=== PATIENT | female | born 1995 | race Caucasian/White ===

== ENCOUNTER 2021-07-29 21:10 | Inpatient (IN) ==
[2021-07-29] MEDS ORDERED: SODIUM CHLORIDE 0.9% 1000ML 2,000 ML IV ONE (21:47)
[2021-07-29] MEDS ORDERED: guaiFENesin 600 MG TABCR PO STA (21:47)
[2021-07-29] MEDS ORDERED: ALBUT/IPRATROP 3MG/0.5MG NEB 3 ML VIAL NEB ONE (21:48)
[2021-07-29 22:05] LABS: Basophils # (auto) 0.01 K/uL (0-0.2); Basophils % (auto) 0.1 %; Eosinophils # (auto) 0.13 K/uL (0-0.5); Eosinophils % (auto) 0.8 %; Hematocrit (blood only) 45.4 % (37-47); Hemoglobin 15.9 g/dL (12.0-16.0); Immature Granulocytes # (auto) 0.12 K/uL (0.00-0.02); Immature Granulocytes % (auto) 0.7 %; Lymphocytes # (auto) 1.17 K/uL (1.2-3.4); Lymphocytes % (auto) 7.2 %; Mean Corpuscular Hemoglobin 31.1 pg (25-34); Mean Corpuscular Volume 88.8 fL (80-100); Mean Platelet Volume 9.7 fL (7.4-10.4); Neutrophils # (auto) 13.45 K/uL (1.4-6.5); Neutrophils % (auto) 83.2 %; Platelet Count 330 K/uL (130-400); RDW Coefficient of Variation 12.6 % (11.5-14.5); RDW Standard Deviation 40.9 fL (36.4-46.3); Red Blood Count 5.11 M/uL (4.2-5.4); White Blood Count 16.18 K/uL (4.8-10.8)
[2021-07-29] MEDS: MAGNESIUM SULFATE / D5W 1 GM/100 ML BAG IV SCH ×2 (22:21→22:32)
[2021-07-29 22:24] LABS: Troponin I < 0.03 ng/ml (0-0.04)
[2021-07-29 22:28] LABS: Pregnancy Test, Serum Negative (Negative)
[2021-07-29 22:30] LABS: Alanine Aminotransferase 18 U/L (7-52); Albumin Globulin Ratio 1.7 (0.9-2); Albumin Level 4.5 gm/dl (3.4-5.0); Alkaline Phosphatase 57 U/L (34-104); Anion Gap 9 (3-11); Aspartate Aminotransferase 14 U/L (13-39); BUN Creatinine Ratio 17.5 (10-20); Bilirubin,Total 0.4 mg/dl (0.2-1.0); Blood Urea Nitrogen 11 mg/dl (6-23); Carbon Dioxide 28 mmol/L (21-32); Chloride 104 mmol/L (98-107); Creatinine Clr Calc Pharmacy 135.1 ml/min; Est GFR (African American) 146.5 ml/min; Est GFR (Non-African American) 126.4 ml/min; Globulin 2.7 gm/dl (2.5-4.0); Glucose 89 mg/dl (70-99(Fasting)); Lipase 13 U/L (11-82); Sodium 141 mmol/L (136-145); Total Protein 7.2 gm/dl (6.0-8.3)
[2021-07-30] MEDS ORDERED: ALBUT/IPRATROP 3MG/0.5MG NEB 3 ML VIAL NEB ONE (00:07)
--- NOTE | 2021-07-30 00:59 | History & Physical Report ---
Date of Service July 30, 2021 Assessment & Plan (1) Asthma exacerbation: Plan: Protracted symptoms Rule out PE as precipitant Medical telemetry CT chest PE study Steroids, nebs RTC Pulmonary consult if without improvement DVT prophylaxis per Lovenox subcu Full code Text document was generated using [employer] voice recognition software. It may contain grammatical or spelling errors. Kindly contact undersigned for clarification of any documentation item in question. History of Present Illness Chief Complaint: shortness of breath Primary Care Provider: NO PCP History obtained from patient and records. Medical history significant for bronchial asthma. Patient has had bronchial asthma since childhood. Usual precipitants include dust and change in weather. Infrequent rescue inhaler use. Patient recalls intubation history for bad asthma attack years ago when she was living in [place]. Last week, patient confined for 2 days at [facility] for asthma exacerbation. Patient discharged on 5-day prednisone course and rescue inhaler. No recent ER visits for asthma attacks prior to recent confinement. Patient noted persistent dry cough symptoms at home. Shortness of breath worse on exertion. Chest tightness with achy headache symptoms. Solu-Cortef and neb treatment administered by EMS. Medical History as above Surgical History : None Family History : Stroke Personal/Social history : Non-smoker, occasional EtOH intake, currently unemployed Allergies Allergy/AdvReac Type Severity Reaction Status Date / Time No Known Allergies Allergy Unverified 07/29/21 22:08 Home Medications Medication Instructions Recorded Confirmed Type albuterol sulfate 90 mcg/actuation 2 puff INHALATION Q6H PRN 07/29/21 07/29/21 History aerosol inhaler prednisone 1 dose PO UD 07/29/21 07/29/21 History Past Med/Surg History Medical History Asthma Family History Other Family history non-contributory Social History Smoking Status: Never smoker Second Hand Exposure: No; Do You Dip or Chew Tobacco: No; Tobacco Cessation Education Requested by Patient: No Hx Alcohol Use: Yes (Patient drinks socially) Hx Substance Use: No Communication Ability: Effective [employer] Packer Required: No Beliefs That Will Affect Care: None Current Living Situation: Alone Current Living Situation Comment: Lives home by herself Feels Safe at Home: No Is there a partner from a previous relationship who is making you feel unsafe now?: No Any Concerns about Your Family Situation: No Would You Like to Speak to Someone About Your Situation: No Safety Concerns: Feels Safe At This Time Assistive Devices: None Review of Systems Review of Systems: As per HPI, all 10 systems reviewed, all other ROS negative Physical Exam Physical Exam: GENERAL: Comfortable, slightly anxious, no respiratory distress SKIN: Normal color, warm HEENT: [place] palpebral conjunctivae, no ptosis, dry buccal mucosa NECK : Supple, no tenderness CHEST : Decreased breath sounds, occasional expiratory wheezes, no tenderness HEART : Tachycardic, no obvious murmurs ABDOMEN: no distention, nontender EXTREMITIES : No LE swelling/tenderness, no other conspicuous deformities noted NEUROLOGIC : Coherent, no facial asymmetry, no other gross focality Results & Data Results & Data ([facility]) Vital Signs (Past 12 Hours) Vital Signs Temp Pulse Resp BP Pulse Ox 07/29/21 23:20 129 H 19 91 07/29/21 23:10 123 H 17 97 07/29/21 23:00 132 H 21 97 07/29/21 22:57 24 91 07/29/21 22:50 123 H 27 H 97 07/29/21 22:40 135 H 19 99 07/29/21 22:30 125 H 24 98 07/29/21 22:20 143 H 16 99 07/29/21 22:10 121 H 16 99 07/29/21 22:00 123 H 15 91 07/29/21 21:50 132 H 18 93 07/29/21 21:47 91 07/29/21 21:40 125 H 15 93 07/29/21 21:30 137 H 18 93 07/29/21 21:20 153 H 25 H 92 07/29/21 20:57 36.4 C 150 H 35 H 138/102 H 91 Laboratory Results Laboratory Results WBC 16.18 K/uL (4.8-10.8) H 07/29/21 21:35 RBC 5.11 M/uL (4.2-5.4) 07/29/21 21:35 Hgb 15.9 g/dL (12.0-16.0) 07/29/21 21:35 Hct 45.4 % (37-47) 07/29/21 21: MCV 88.8 fL (80-100) 07/29/21 21: MCH 31.1 pg (25-34) 07/29/21: MCHC 35.0 g/dL (32-36) 07/29/21: RDW Std Deviation 40.9 fL (36.4-46.3) 07/29/21: RDW Coeff of Gregory 12.6 % (11.5-14.5) 07/29/21: Plt Count 330 K/uL (130-400) 07/29/21: MPV 9.7 fL (7.4-10.4) 07/29/21: Immature Gran % (Auto) 0.7 % 07/29/21: Neut % (Auto) 83.2 % 07/29/21: Lymph % (Auto) 7.2 % 07/29/21: [place] % (Auto) 8.0 % 07/29/21: Eos % (Auto) 0.8 % 07/29/21 21: Baso % (Auto) 0.1 % 07/29/21: Neut # (Auto) 13.45 K/uL (1.4-6.5) H 07/29/21: Lymph # (Auto) 1.17 K/uL (1.2-3.4) L 07/29/21: [place] # (Auto) 1.30 K/uL (0.11-0.59) H 07/29/21 21: Eos # (Auto) 0.13 K/uL (0-0.5) 07/29/21 21: Baso # (Auto) 0.01 K/uL (0-0.2) 07/29/21: Immature Gran # (Auto) 0.12 K/uL (0.00-0.02) H 07/29/21 21: Sodium 141 mmol/L (136-145) 07/29/21 21: Potassium 4.0 mmol/L (3.5-5.1) 07/29/21 21: Chloride 104 mmol/L (98-107) 07/29/21 21: Carbon Dioxide 28 mmol/L (21-32) 07/29/21 21:35 Anion Gap 9 (3-11) 07/29/21 21:35 BUN 11 mg/dl (6-23) 07/29/21 21:35 Creatinine 0.63 mg/dl (0.6-1.2) 07/29/21 21:35 Est Cr Clr Drug Dosing 135.1 ml/min 07/29/21 21:35 Est GFR ( Amer) 146.5 ml/min 07/29/21 21:35 Est GFR (Non-Af Amer) 126.4 ml/min 07/29/21 21:35 BUN/Creatinine Ratio 17.5 (10-20) 07/29/21 21:35 Glucose 89 mg/dl (70-99(Fasting)) 07/29/21 21:35 Calcium 9.0 mg/dl (8.5-10.1) 07/29/21 21:35 Total Bilirubin 0.4 mg/dl (0.2-1.0) 07/29/21 21:35 AST 14 U/L (13-39) 07/29/21 21:35 ALT 18 U/L (7-52) 07/29/21 21:35 Alkaline Phosphatase 57 U/L (34-104) 07/29/21 21:35 Troponin I < 0.03 ng/ml (0-0.04) 07/29/21 21:35 Total Protein 7.2 gm/dl (6.0-8.3) 07/29/21 21:35 Albumin 4.5 gm/dl (3.4-5.0) 07/29/21 21:35 Globulin 2.7 gm/dl (2.5-4.0) 07/29/21 21:35 Albumin/Globulin Ratio 1.7 (0.9-2) 07/29/21 21:35 Lipase 13 U/L (11-82) 07/29/21 21:35 HCG, Qual Negative (Negative) 07/29/21 21:35 SARS-CoV-2, RNA, NAAT NEGATIVE (NEGATIVE) 07/29/21 23:27 Diagnostic Findings Chest x-ray per my interpretation hyperinflation EKG as per my interpretation : Rate 135, sinus tachycardia, normal axis, T wave abnormalities inferior leads
[2021-07-30] MEDS ORDERED: ACETAMINOPHEN 325 MG TAB PO STA (01:01)
--- NOTE | 2021-07-30 01:03 | Emergency Department Note ---
Impression & Plan Asthma with status asthmaticus in adult, Hypoxia, Sinus tachycardia ED Provider Note NAME: MARGE WATTS AGE: 25 SEX: F ARRIVES VIA: Ambulance INFORMANT: Patient ED PROVIDER(S): Allan Beck MD CHIEF COMPLAINT: SOB, Asthma PLAN: Disposition: Admit MEDICAL DECISION MAKING: The patient is a pleasant 24-year-old woman with a past medical history of asthma where she has a remote history of requiring intubation and ICU admission who presents to the emergency department with worsening flare of cough and wheezing over the past 48 hours in the setting of being admitted to [facility] this past weekend for similar flare. Patient reports she was feeling improved upon her discharge but then her symptoms began to worsen. She has any fevers, nausea, vomiting, diarrhea or urinary symptoms. She is vaccinated for COVID-19 denies any known COVID-19 exposures. Given Solu-Cortef by EMS and DuoNeb and prior to that the patient was administering her nebulizer treatments every 4 hours. On arrival, the patient is uncomfortable but in no acute distress, afebrile with heart rate in the 130s signs otherwise stable. She appears clinically dry. She has diffuse wheezes and rhonchi with prolonged expiratory phase with mild increased work of breathing. EKG without overt acute ischemia. CXR with flattening of diaphragm. No overt infiltrates per my preliminary review. WBC 16K, nonspecific and in the setting of being on steroids. H/H, platelets wnl. Chemistry without acidosis. Electrolytes unremarkable. LFTs without significant abnormality. Troponin negative/undetectable. Covid-19 RNA, NAAT negative. The patient was treated with continuous hour-long DuoNeb, Magnesium guaifenesin and IV fluid hydration with some improvement in her symptoms though still diffusely wheezing. RN did report that the patient became significantly short of breath with ambulation to the bathroom and had desaturation to 85% with exertion but would recover when at rest. Given the persistence of her asthma flare in the setting of her concerning history she agrees with plan for admission. She was ordered for second continuous DuoNeb. Case was discussed with Dr. Gill, [facility] hospitalist who will evaluate the patient for admission. Triage Nursing notes reviewed and agree them. Prior medical records reviewed Vital Signs: reviewed and remarkable for tachycardia, low O2 saturation. Differential diagnosis: Reactive airway disease, pneumonia, pneumothorax, COPD, CHF, infections, cardiac ischemia, pulmonary embolism, musculoskeletal, gastrointestinal, as well as other pathologies. ER treatment provided: See below. Diagnostics interpreted by me: ECG: Sinus tachycardia, 137 bpm, no ectopy, TWA, no overt ST elevation or depression. Cardiac Monitoring: An order for continuous cardiac monitoring was placed and demonstrated Sinus tachycardia, 137 bpm, no ectopy. Laboratory studies: See below Imaging studies: CXR with flattening of diaphragm. No overt infiltrates per my preliminary revi ew. Consultation(s): Case was discussed with Dr. Gill, [facility] hospitalist who will evaluate the patient for admission. HPI: The patient is a pleasant 24-year-old woman with a past medical history of asthma where she has a remote history of requiring intubation and ICU admission who presents to the emergency department with worsening flare of cough and wheezing over the past 48 hours in the setting of being admitted to [facility] this past weekend for similar flare. Patient reports she was feeling improved upon her discharge but then her symptoms began to worsen. She has any fevers, nausea, vomiting, diarrhea or urinary symptoms. She is vaccinated for COVID-19 denies any known COVID-19 exposures. Given Solu-Cortef by EMS and DuoNeb and prior to that the patient was administering her nebulizer treatments every 4 hours. ROS: See above HPI for pertinent positives & negatives. A total of 10 systems reviewed and were otherwise negative. VITALS:See Below PHYSICAL EXAMINATION: GENERAL: Awake, alert, uncomfortable-appearing, in no distress HENT: Normocephalic, atraumatic. Oropharynx with dry mucous membranes and otherwise unremarkable. EYES: Normal conjunctiva. Sclera non-icteric. NECK: Supple. No nuchal rigidity. FROM. No JVD. RESPIRATORY: Diffuse wheezes and rhonchi with prolonged expiratory phase with mild increased work of breathing but in no acute distress. CARDIAC: Tachycardic rate, normal rhythm. Extremities warm and well perfused. Pulses equal. ABDOMEN: Soft, non-distended. No tenderness to palpation. No rebound or guarding. No masses. RECTAL: Deferred. MUSCULOSKELETAL: Chest examination reveals no tenderness. The back is s ymmetrical on inspection without obvious abnormality. There is no CVA tenderness to palpation. No joint edema. LOWER EXTREMITIES: Calves are equal size bilaterally and non-tender. No edema. No discoloration. NEURO: Normal sensorium. No sensory or motor deficits noted. SKIN: No rash or jaundice noted. ED COURSE: Critical Care: I have personally spent greater than 35 minutes of critical care time in the direct management of this patient. This includes bedside care, interpretation of diagnostic studies, and testing, discussion with consultants, patient, and family members, and other required patient management activities. This 35 minutes is in excess of all separately billable procedures. Allan Beck MD Past Med/Surg History Medical History Asthma Family History Other Family history non-contributory Social History Smoking Status: Never smoker Feels Safe at Home: Yes Allergies Allergies Allergy/AdvReac Type Severity Reaction Status Date / Time No Known Allergies Allergy Unverified 07/29/21 22:08 Home Meds Home Medications Medication Instructions Recorded Confirmed albuterol sulfate 90 mcg/actuation 2 puff INHALATION Q6H PRN 07/29/21 07/29/21 aerosol inhaler prednisone 1 dose PO UD 07/29/21 07/29/21 Results & Data (ED) Vital Signs Vital Signs - 24 hr 07/29/21 20:57 07/29/21 21:20 07/29/21 21:30 Temperature 36.4 C Temperature Source Oral Pulse Rate 150 H 153 H 137 H Pulse Rate [Radial] Pulse Rate from SpO2 Sensor 153 H 134 H Pulse Rhythm Regular Respiratory Rate 35 H 25 H 18 Respiratory Effort / Characteristics Short of Breath Tripoding Respiratory Depth Blood Pressure 138/102 H Blood Pressure [Right Arm] Blood Pressure Mean 114 Blood Pressure Mean [Right Arm] Blood Pressure Position Sitting Pulse Oximetry 91 92 93 Oxygen Delivery Method Room Air Oxygen Flow Rate Sepsis Recent Fever Within 48 Hours No Sepsis New/Unexplained Change in Mental Status No Sepsis Action Taken by Nursing No Action Required 07/29/21 21:40 07/29/21 21:47 07/29/21 21:50 Temperature Temperature Source Pulse Rate 125 H 132 H Pulse Rate [Radial] Pulse Rate from SpO2 Sensor 127 H 130 H Pulse Rhythm Respiratory Rate 15 18 Respiratory Effort / Characteristics Respiratory Depth Blood Pressure Blood Pressure [Right Arm] Blood Pressure Mean Blood Pressure Mean [Right Arm] Blood Pressure Position Pulse Oximetry 93 91 93 Oxygen Delivery Method Room Air Oxygen Flow Rate Sepsis Recent Fever Within 48 Hours Sepsis New/Unexplained Change in Mental Status Sepsis Action Taken by Nursing 07/29/21 22:00 07/29/21 22:10 07/29/21 22:20 Temperature Temperature Source Pulse Rate 123 H 121 H 143 H Pulse Rate [Radial] Pulse Rate from SpO2 Sensor 124 H 123 H 146 H Pulse Rhythm Respiratory Rate 15 16 16 Respiratory Effort / Characteristics Respiratory Depth Blood Pressure Blood Pressure [Right Arm] Blood Pressure Mean Blood Pressure Mean [Right Arm] Blood Pressure Position Pulse Oximetry 91 99 99 Oxygen Delivery Method Oxygen Flow Rate Sepsis Recent Fever Within 48 Hours Sepsis New/Unexplained Change in Mental Status Sepsis Action Taken by Nursing 07/29/21 22:30 07/29/21 22:40 07/29/21 22:50 Temperature Temperature Source Pulse Rate 125 H 135 H 123 H Pulse Rate [Radial] Pulse Rate from SpO2 Sensor 125 H 124 H 122 H Pulse Rhythm Respiratory Rate 24 19 27 H Respiratory Effort / Characteristics Respiratory Depth Blood Pressure Blood Pressure [Right Arm] Blood Pressure Mean Blood Pressure Mean [Right Arm] Blood Pressure Position Pulse Oximetry 98 99 97 Oxygen Delivery Method Oxygen Flow Rate Sepsis Recent Fever Within 48 Hours Sepsis New/Unexplained Change in Mental Status Sepsis Action Taken by Nursing 07/29/21 22:57 07/29/21 23:00 07/29/21 23:10 Temperature Temperature Source Pulse Rate 132 H 123 H Pulse Rate [Radial] Pulse Rate from SpO2 Sensor 131 H 123 H Pulse Rhythm Respiratory Rate 24 21 17 Respiratory Effort / Characteristics Respiratory Depth Blood Pressure Blood Pressure [Right Arm] Blood Pressure Mean Blood Pressure Mean [Right Arm] Blood Pressure Position Pulse Oximetry 91 97 97 Oxygen Delivery Method Room Air Oxygen Flow Rate Sepsis Recent Fever Within 48 Hours Sepsis New/Unexplained Change in Mental Status Sepsis Action Taken by Nursing 07/29/21 23:20 07/29/21 23:30 07/29/21 23:40 Temperature Temperature Source Pulse Rate 129 H 120 H 115 H Pulse Rate [Radial] Pulse Rate from SpO2 Sensor 130 H 121 H 114 H Pulse Rhythm Respiratory Rate 19 24 15 Respiratory Effort / Characteristics Respiratory Depth Blood Pressure Blood Pressure [Right Arm] Blood Pressure Mean Blood Pressure Mean [Right Arm] Blood Pressure Position Pulse Oximetry 91 91 94 Oxygen Delivery Method Oxygen Flow Rate Sepsis Recent Fever Within 48 Hours Sepsis New/Unexplained Change in Mental Status Sepsis Action Taken by Nursing 07/29/21 23:50 07/30/21 00:00 07/30/21 00:10 Temperature Temperature Source Pulse Rate 119 H 119 H 118 H Pulse Rate [Radial] Pulse Rate from SpO2 Sensor 119 H 120 H 119 H Pulse Rhythm Respiratory Rate 19 18 20 Respiratory Effort / Characteristics Respiratory Depth Normal Blood Pressure Blood Pressure [Right Arm] Blood Pressure Mean Blood Pressure Mean [Right Arm] Blood Pressure Position Pulse Oximetry 92 92 91 Oxygen Delivery Method Room Air Oxygen Flow Rate Sepsis Recent Fever Within 48 Hours Sepsis New/Unexplained Change in Mental Status Sepsis Action Taken by Nursing 07/30/21 00:20 07/30/21 00:30 07/30/21 00:40 Temperature Temperature Source Pulse Rate 112 H 121 H 111 H Pulse Rate [Radial] Pulse Rate from SpO2 Sensor 111 H 112 H Pulse Rhythm Respiratory Rate 19 17 Respiratory Effort / Characteristics Respiratory Depth Blood Pressure Blood Pressure [Right Arm] Blood Pressure Mean Blood Pressure Mean [Right Arm] Blood Pressure Position Pulse Oximetry 92 96 Oxygen Delivery Method Oxygen Flow Rate Sepsis Recent Fever Within 48 Hours Sepsis New/Unexplained Change in Mental Status Sepsis Action Taken by Nursing 07/30/21 00:50 07/30/21 01:00 07/30/21 01:10 Temperature Temperature Source Pulse Rate 116 H 117 H 116 H Pulse Rate [Radial] Pulse Rate from SpO2 Sensor 114 H 117 H 117 H Pulse Rhythm Respiratory Rate 15 19 22 Respiratory Effort / Characteristics Respiratory Depth Blood Pressure Blood Pressure [Right Arm] Blood Pressure Mean Blood Pressure Mean [Right Arm] Blood Pressure Position Pulse Oximetry 96 94 95 Oxygen Delivery Method Oxygen Flow Rate Sepsis Recent Fever Within 48 Hours Sepsis New/Unexplained Change in Mental Status Sepsis Action Taken by Nursing 07/30/21 01:20 07/30/21 01:30 07/30/21 01:40 Temperature Temperature Source Pulse Rate 122 H 113 H 124 H Pulse Rate [Radial] Pulse Rate from SpO2 Sensor 112 H 126 H Pulse Rhythm Respiratory Rate 16 16 22 Respiratory Effort / Characteristics Respiratory Depth Blood Pressure Blood Pressure [Right Arm] Blood Pressure Mean Blood Pressure Mean [Right Arm] Blood Pressure Position Pulse Oximetry 98 99 Oxygen Delivery Method Oxygen Flow Rate Sepsis Recent Fever Within 48 Hours Sepsis New/Unexplained Change in Mental Status Sepsis Action Taken by Nursing 07/30/21 01:50 07/30/21 02:00 07/30/21 02:10 Temperature Temperature Source Pulse Rate 133 H 141 H 131 H Pulse Rate [Radial] Pulse Rate from SpO2 Sensor 133 H 141 H 131 H Pulse Rhythm Respiratory Rate 23 18 21 Respiratory Effort / Characteristics Respiratory Depth Blood Pressure Blood Pressure [Right Arm] Blood Pressure Mean Blood Pressure Mean [Right Arm] Blood Pressure Position Pulse Oximetry 99 98 98 Oxygen Delivery Method Oxygen Flow Rate Sepsis Recent Fever Within 48 Hours Sepsis New/Unexplained Change in Mental Status Sepsis Action Taken by Nursing 07/30/21 02:20 07/30/21 02:31 07/30/21 03:14 Temperature Temperature Source Pulse Rate 152 H Pulse Rate [Radial] 125 H Pulse Rate from SpO2 Sensor 151 H Pulse Rhythm Respiratory Rate 19 18 Respiratory Effort / Characteristics Non-Labored Spontaneous Respiratory Depth Blood Pressure Blood Pressure [Right Arm] 111/82 Blood Pressure Mean Blood Pressure Mean [Right Arm] 91 Blood Pressure Position Pulse Oximetry 99 95 Oxygen Delivery Method Nasal Cannula Oxygen Flow Rate 2 Sepsis Recent Fever Within 48 Hours Sepsis New/Unexplained Change in Mental Status Sepsis Action Taken by Nursing 07/30/21 03:17 Temperature Temperature Source Pulse Rate 130 H Pulse Rate [Radial] Pulse Rate from SpO2 Sensor Pulse Rhythm Respiratory Rate Respiratory Effort / Characteristics Respiratory Depth Blood Pressure 117/63 Blood Pressure [Right Arm] Blood Pressure Mean Blood Pressure Mean [Right Arm] Blood Pressure Position Pulse Oximetry Oxygen Delivery Method Oxygen Flow Rate Sepsis Recent Fever Within 48 Hours Sepsis New/Unexplained Change in Mental Status Sepsis Action Taken by Nursing Laboratory Data Attestation: I reviewed the patient's lab results. Result diagrams: 07/29/21 21:35 07/29/21 21:35 Lab Results 07/29/21 07/29/21 07/29/21 Range/Units 21:35 21:35 21:35 WBC 16.18 H (4.8-10.8) K/uL RBC 5.11 (4.2-5.4) M/uL Hgb 15.9 (12.0-16.0) g/dL Hct 45.4 (37-47) % MCV 88.8 (80-100) fL MCH 31.1 (25-34) pg MCHC 35.0 (32-36) g/dL RDW Std Deviation 40.9 (36.4-46.3) fL RDW Coeff of Gregory 12.6 (11.5-14.5) % Plt Count 330 (130-400) K/uL MPV 9.7 (7.4-10.4) fL Immature Gran % (Auto) 0.7 % Neut % (Auto) 83.2 % Lymph % (Auto) 7.2 % [place] % (Auto) 8.0 % Eos % (Auto) 0.8 % Baso % (Auto) 0.1 % Neut # (Auto) 13.45 H (1.4-6.5) K/uL Lymph # (Auto) 1.17 L (1.2-3.4) K/uL [place] # (Auto) 1.30 H (0.11-0.59) K/uL Eos # (Auto) 0.13 (0-0.5) K/uL Baso # (Auto) 0.01 (0-0.2) K/uL Immature Gran # (Auto) 0.12 H (0.00-0.02) K/uL APTT (21.0-31.0) Seconds PTT Ratio Sodium 141 (136-145) mmol/L Potassium 4.0 (3.5-5.1) mmol/L Chloride 104 (98-107) mmol/L Carbon Dioxide 28 (21-32) mmol/L Anion Gap 9 (3-11) BUN 11 (6-23) mg/dl Creatinine 0.63 (0.6-1.2) mg/dl Est Cr Clr Drug Dosing 135.1 ml/min Est GFR ( Amer) 146.5 ml/min Est GFR (Non-Af Amer) 126.4 ml/min BUN/Creatinine Ratio 17.5 (10-20) Glucose 89 (70-99(Fasting)) mg/dl Lactate (0.4-2.0) mmol/L Calcium 9.0 (8.5-10.1) mg/dl Magnesium (1.7-2.4) mg/dl Total Bilirubin 0.4 (0.2-1.0) mg/dl AST 14 (13-39) U/L ALT 18 (7-52) U/L Alkaline Phosphatase 57 (34-104) U/L Troponin I < 0.03 (0-0.04) ng/ml Total Protein 7.2 (6.0-8.3) gm/dl Albumin 4.5 (3.4-5.0) gm/dl Globulin 2.7 (2.5-4.0) gm/dl Albumin/Globulin Ratio 1.7 (0.9-2) Lipase 13 (11-82) U/L Procalcitonin (0-0.5) ng/ml HCG, Qual Negative (Negative) SARS-CoV-2, RNA, NAAT (NEGATIVE) 07/29/21 07/30/21 07/30/21 Range/Units 23:27 02:04 02:04 WBC (4.8-10.8) K/uL RBC (4.2-5.4) M/uL Hgb (12.0-16.0) g/dL Hct (37-47) % MCV (80-100) fL MCH (25-34) pg MCHC (32-36) g/dL RDW Std Deviation (36.4-46.3) fL RDW Coeff of Gregory (11.5-14.5) % Plt Count (130-400) K/uL MPV (7.4-10.4) fL Immature Gran % (Auto) % Neut % (Auto) % Lymph % (Auto) % [place] % (Auto) % Eos % (Auto) % Baso % (Auto) % Neut # (Auto) (1.4-6.5) K/uL Lymph # (Auto) (1.2-3.4) K/uL [place] # (Auto) (0.11-0.59) K/uL Eos # (Auto) (0-0.5) K/uL Baso # (Auto) (0-0.2) K/uL Immature Gran # (Auto) (0.00-0.02) K/uL APTT 22.8 (21.0-31.0) Seconds PTT Ratio 0.8 Sodium (136-145) mmol/L Potassium (3.5-5.1) mmol/L Chloride (98-107) mmol/L Carbon Dioxide (21-32) mmol/L Anion Gap (3-11) BUN (6-23) mg/dl Creatinine (0.6-1.2) mg/dl Est Cr Clr Drug Dosing ml/min Est GFR ( Amer) ml/min Est GFR (Non-Af Amer) ml/min BUN/Creatinine Ratio (10-20) Glucose (70-99(Fasting)) mg/dl Lactate (0.4-2.0) mmol/L Calcium (8.5-10.1) mg/dl Magnesium 2.5 H (1.7-2.4) mg/dl Total Bilirubin (0.2-1.0) mg/dl AST (13-39) U/L ALT (7-52) U/L Alkaline Phosphatase (34-104) U/L Troponin I (0-0.04) ng/ml Total Protein (6.0-8.3) gm/dl Albumin (3.4-5.0) gm/dl Globulin (2.5-4.0) gm/dl Albumin/Globulin Ratio (0.9-2) Lipase (11-82) U/L Procalcitonin (0-0.5) ng/ml HCG, Qual (Negative) SARS-CoV-2, RNA, NAAT NEGATIVE (NEGATIVE) 07/30/21 07/30/21 Range/Units 02:04 02:04 WBC (4.8-10.8) K/uL RBC (4.2-5.4) M/uL Hgb (12.0-16.0) g/dL Hct (37-47) % MCV (80-100) fL MCH (25-34) pg MCHC (32-36) g/dL RDW Std Deviation (36.4-46.3) fL RDW Coeff of Gregory (11.5-14.5) % Plt Count (130-400) K/uL MPV (7.4-10.4) fL Immature Gran % (Auto) % Neut % (Auto) % Lymph % (Auto) % [place] % (Auto) % Eos % (Auto) % Baso % (Auto) % Neut # (Auto) (1.4-6.5) K/uL Lymph # (Auto) (1.2-3.4) K/uL [place] # (Auto) (0.11-0.59) K/uL Eos # (Auto) (0-0.5) K/uL Baso # (Auto) (0-0.2) K/uL Immature Gran # (Auto) (0.00-0.02) K/uL APTT (21.0-31.0) Seconds PTT Ratio Sodium (136-145) mmol/L Potassium (3.5-5.1) mmol/L Chloride (98-107) mmol/L Carbon Dioxide (21-32) mmol/L Anion Gap (3-11) BUN (6-23) mg/dl Creatinine (0.6-1.2) mg/dl Est Cr Clr Drug Dosing ml/min Est GFR ( Amer) ml/min Est GFR (Non-Af Amer) ml/min BUN/Creatinine Ratio (10-20) Glucose (70-99(Fasting)) mg/dl Lactate 2.4 H* (0.4-2.0) mmol/L Calcium (8.5-10.1) mg/dl Magnesium (1.7-2.4) mg/dl Total Bilirubin (0.2-1.0) mg/dl AST (13-39) U/L ALT (7-52) U/L Alkaline Phosphatase (34-104) U/L Troponin I (0-0.04) ng/ml Total Protein (6.0-8.3) gm/dl Albumin (3.4-5.0) gm/dl Globulin (2.5-4.0) gm/dl Albumin/Globulin Ratio (0.9-2) Lipase (11-82) U/L Procalcitonin < 0.05 (0-0.5) ng/ml HCG, Qual (Negative) SARS-CoV-2, RNA, NAAT (NEGATIVE) Administered Medications Discontinued Medications Acetaminophen (Acetaminophen 325 Mg Tab) 650 mg PO NOW STA Stop: 07/30/21 01:02 Last Admin: 07/30/21 01:29 Dose: 650 mg Documented by: [id number] Albuterol (Albut/Ipratrop 3mg/0.5mg Neb 3 Ml Vial) 12 ml NEB ONE ONE; Protocol Stop: 07/29/21 21:49 Last Admin: 07/29/21 22:06 Dose: 12 ml Documented by: [id number] Albuterol (Albut/Ipratrop 3mg/0.5mg Neb 3 Ml Vial) 12 ml NEB ONE ONE; Protocol Stop: 07/30/21 00:08 Last Admin: 07/30/21 01:13 Dose: 12 ml Documented by: [id number] Guaifenesin (Guaifenesin 600 Mg Tabcr) 600 mg PO NOW STA Stop: 07/29/21 21:48 Last Admin: 07/29/21 22:21 Dose: 600 mg Documented by: [id number] Sodium Chloride (Nss 1000ml) 2,000 mls @ 999 mls/hr IV .Q2H1M ONE Stop: 07/29/21 23:47 Last Infusion: 07/30/21 00:23 Dose: 0 mls/hr Documented by: [id number] Admin: 07/29/21 22:05 Dose: 999 mls/hr Documented by: [id number] Magnesium Sulfate/Dextrose (Magnesium Sulfate / D5w) 1 gm in 100 mls @ 600 mls/hr IV Q10M MYRNA Stop: 07/29/21 22:07 Last Infusion: 07/29/21 22:43 Dose: 0 mls/hr Documented by: [id number] Admin: 07/29/21 22:32 Dose: 600 mls/hr Documented by: [id number] Infusion: 07/29/21 22:32 Dose: 0 mls/hr Documented by: [id number] Admin: 07/29/21 22:21 Dose: 600 mls/hr Documented by: [id number] Lactated Ringer's (Lr) 1,000 mls @ 500 mls/hr IV .Q2H STA Stop: 07/30/21 03:12 Last Admin: 07/30/21 01:29 Dose: 500 mls/hr Documented by: [id number] Lorazepam (Lorazepam 2 Mg/1 Ml Vial) 0.5 mg IV NOW STA Stop: 07/30/21 02:36 Last Admin: 07/30/21 03:18 Dose: 0.5 mg Documented by: [id number] Metoprolol Tartrate (Metoprolol Tartrate 1 Mg/Ml Vial) 2.5 mg IV NOW STA; Protocol Stop: 07/30/21 02:34 Last Admin: 07/30/21 03:17 Dose: 2.5 mg Documented by: [id number] Discharge Plan Visit Data Chief Complaint: Shortness of Breath/Dyspnea ED Provider: Allan Beck Discharge Problem: Asthma with status asthmaticus in adult, Hypoxia, Sinus tachycardia Forms Stand Alone Forms: [employer] Prescriptions Prescriptions: No Action albuterol sulfate 90 mcg/actuation Hfa Aerosol Inhaler 2 puff INHALATION Q6H PRN (Reason: Shortness Of Breath Or Wheezing) RF: 0 prednisone 1 dose PO UD RF: 0 Referrals Referrals: PCP,NO [Primary Care Provider] - Discharge Problem: Asthma with status asthmaticus in adult Qualifiers: Asthma severity: severe Asthma persistence: persistent Qualified Code(s): J45.52 - Severe persistent asthma with status asthmaticus
[2021-07-30] MEDS ORDERED: LACTATED RINGER'S 1,000 ML IV STA ×2 (01:13→03:31)
[2021-07-30 02:33] LABS: Partial Thromboplastin Ratio 0.8; Partial Thromboplastin Time 22.8 Seconds (21.0-31.0)
[2021-07-30] MEDS ORDERED: METOPROLOL TARTRATE 1 MG/ML VIAL IV STA (02:33)
[2021-07-30] MEDS ORDERED: LORazepam 2 MG/1 ML VIAL IV STA (02:35)
[2021-07-30] MEDS ORDERED: LEVALBUTEROL 1.25MG/0.5ML NEB INH PRN ×2 (04:41→08:39)
[2021-07-30] MEDS ORDERED: PROMETHAZINE HCL 12.5 MG in SODIUM CHLORIDE 0.9% 50 ML IV PRN (04:41)
[2021-07-30] MEDS ORDERED: IPRATROPIUM BROMIDE NEB SOLN 0.02% 2.5 ML VIAL INH PRN (04:41)
[2021-07-30] MEDS ORDERED: XOPENEX/ATROVENT 1.25mg/0.5MG NEB COMBO NEB PRN (04:41)
[2021-07-30] MEDS ORDERED: LORazepam 2 MG/1 ML VIAL IV PRN (04:41)
[2021-07-30] MEDS ORDERED: ACETAMINOPHEN 325 MG TAB PO PRN (04:41)
[2021-07-30] MEDS ORDERED: OPTIRAY 320 125ml IV ONE (05:49)
[2021-07-30 06:12] LABS: Hematocrit (blood only) 39.7 % (37-47); Hemoglobin 13.7 g/dL (12.0-16.0); Immature Granulocytes # (auto) 0.05 K/uL (0.00-0.02); Immature Granulocytes % (auto) 0.4 %; Lymphocytes # (auto) 0.74 K/uL (1.2-3.4); Lymphocytes % (auto) 5.8 %; Mean Corpuscular Hemoglobin 30.9 pg (25-34); Mean Corpuscular Hgb Conc 34.5 g/dL (32-36); Mean Corpuscular Volume 89.4 fL (80-100); Mean Platelet Volume 9.1 fL (7.4-10.4); Monocytes # (auto) 0.09 K/uL (0.11-0.59); Monocytes % (auto) 0.7 %; Neutrophils # (auto) 11.82 K/uL (1.4-6.5); Neutrophils % (auto) 93.1 %; Platelet Count 277 K/uL (130-400); RDW Coefficient of Variation 12.6 % (11.5-14.5); RDW Standard Deviation 41.1 fL (36.4-46.3); Red Blood Count 4.44 M/uL (4.2-5.4)
[2021-07-30 06:38] LABS: BUN Creatinine Ratio 13.6 (10-20); Calcium 8.3 mg/dl (8.5-10.1); Creatinine Clr Calc Pharmacy 144.2 ml/min; Est GFR (African American) 149.7 ml/min; Est GFR (Non-African American) 129.2 ml/min; Potassium 4.1 mmol/L (3.5-5.1)
--- NOTE | 2021-07-30 07:02 | CT Scan Report ---
CT SCAN OF THE BRAIN WITHOUT IV CONTRAST CLINICAL HISTORY: Headache. COMPARISON STUDY: No priors. TECHNIQUE: Unenhanced axial CT scan of the brain is performed from the vertex to the skull base. A d ose lowering technique was utilized adhering to the principles of ALARA. CT DOSE: 537.48 mGy.cm FINDINGS: Brain parenchyma: The brain parenchyma is normal in appearance. There is no hemorrhage, mass effect, or evidence of acute territorial ischemia by CT criteria. Robertson-white matter differentiation is preser [place]. No extra-axial fluid collection is seen. Ventricles, sulci, cisterns: Normal in configuration. Intracranial vasculature: The visualized intracranial vasculature at the skull base is normal in appe arance. Calvarium: Unremarkable. Sinuses and mastoids: The visualized paranasal sinuses are clear. The mastoid air cells are well pneu matized. Orbits: The bony orbits are grossly intact. IMPRESSION: No acute intracranial abnormality. ACT 112: Negative or not required by law. Electronically signed by: Art Turner M.D. 07/30/2021 7:01 AM
--- NOTE | 2021-07-30 08:01 | XRay Report ---
XR chest 1V portable CLINICAL HISTORY: Atypical chest pain. COMPARISON STUDY: No previous studies for comparison. FINDINGS: Lung volumes are normal. Lungs are clear. There is no pneumothorax or pleural effusion. Car diac size is normal. Mediastinal contours are normal. There is no evidence for pulmonary edema. IMPRESSION: No acute cardiopulmonary findings. ACT 112: Negative or not required by law. Electronically signed by: Mahendra Summers M.D. 07/30/2021 7:59 AM
--- NOTE | 2021-07-30 08:08 | CT Scan Report ---
CT ANGIOGRAPHY OF THE CHEST, PULMONARY EMBOLUS PROTOCOL CLINICAL HISTORY: Chest pain. Shortness of breath. COMPARISON STUDY: Chest radiograph July 29, 2021. TECHNIQUE: Following IV administration of 91 mL of Optiray, helical axial images of the chest were ob tained utilizing the pulmonary embolus protocol. Maximal intensity projections and sagittal and alfredo nal reformats were viewed on an independent 3D workstation. IV contrast was administered without com plication. Automated exposure control was utilized for the study. A dose lowering technique was uti lized adhering to the principles of ALARA. CT DOSE: 258.47 mGy.cm FINDINGS: No pulmonary emboli are identified although the lower lobe segmental and subsegmental pulm onary arteries are suboptimally assessed due to respiratory motion. There is no thoracic aortic disse ction. Size the heart is normal. There is no pericardial effusion. No enlarged thoracic lymph nodes a re present. No pneumomediastinum is present. Diffuse bronchial wall thickening is noted. There are mi ld groundglass opacities within the right middle and right lower lobes. There is no pneumothorax or p leural effusion. Visualized portions of the upper abdomen are unremarkable. No acute fracture or susp icious lesion within the bony thorax. IMPRESSION: 1. No pulmonary emboli identified although lower lobe segmental and subsegmental pulmonary arteries s uboptimally assessed due to respiratory motion. 2. Diffuse bronchial wall thickening and mild nonspecific groundglass opacities within the right midd le and right lower lobes. ACT 112: Negative or not required by law. Electronically signed by: Mahendra Summers M.D. 07/30/2021 8:06 AM
--- NOTE | 2021-07-30 09:46 | Electrocardiogram Report ---
Test Reason : Blood Pressure : / mmHG Vent. Rate : 137 BPM Atrial Rate : 137 BPM P-R Int : 120 ms QRS Dur : 076 ms QT Int : 292 ms P-R-T Axes : 087 085 -23 degrees QTc Int : 440 ms Poor data quality, interpretation may be adversely affected Sinus tachycardia Right atrial enlargement T wave abnormality, consider inferior ischemia Abnormal ECG No previous ECGs available Confirmed by Virgilio Ahn ([id number]) on 07/30/2021 9:46:23 AM Referred By: REFERRED SELF Confirmed By:Virgilio Ahn
[2021-07-30] MEDS: guaiFENesin 600 MG TABCR PO SCH ×2 (10:48→21:09)
[2021-07-30] MEDS: methylPREDNISolone 40 MG in SYRINGE 0 ML IV SCH (10:49)
[2021-07-30] MEDS: ENOXAPARIN INJ 40 MG/0.4 ML SYR SQ SCH (10:54)
[2021-07-30] MEDS: LEVALBUTEROL HCL 0.63 MG/3 ML NEB NEB SCH ×3 (11:06→19:52)
[2021-07-30] MEDS: IPRATROPIUM BROMIDE NEB SOLN 0.02% 2.5 ML VIAL INH SCH ×3 (11:08→19:53)
--- NOTE | 2021-07-30 15:19 | Hospitalist Progress Note ---
Date of Service July 30, 2021 Assessment & Plan (1) Asthma exacerbation: Plan: Acute Asthma Exacerbation --CTA:No pulmonary emboli identified although lower lobe segmental and subsegmental pulmonary arteries suboptimally assessed due to respiratory motion. Diffuse bronchial wall thickening and mild nonspecific groundglass opacities within the right middle and right lower lobes. Normal procalcitonin Continue Solu-Medrol Continue nebs Wean off of supplemental oxygen as able Consider pulmonary evaluation if needed Lactic acidosis No obvious signs of infection Blood cultures pending Lactic acid levels normalized with IV fluids DVT Px: Lovenox SQ Code Status Full code Admission and Anticipated Discharge Date Admission Date: July 30, 2021 Subjective Patient is seen and examined Cough, dyspnea slowly improving Denies any chest pain, nausea, vomiting, abdominal pain Offers no other complaints Currently on 2 L supplemental oxygen Review of Systems Review of Systems: All systems reviewed & are unremarkable except as noted in Subjective Physical Exam Physical Exam: Physical Exam: Vitals signs as noted above General Appearance:Moderately built and nourished, no apparent distress Head: normocephalic, Atraumatic Eyes: normal inspection, EOMI Neck: supple, Trachea midline Respiratory/Chest: Normal breath sounds, Scattered wheezes, No accessory muscle use Cardiovascular: S1, S2, No murmur Abdomen/GI:Soft, Non tender, Bowel sounds present Extremities/Musculoskeletal:normal inspection, no edema Neurologic/Psych:AAOX3, grossly no focal neurological deficits Skin: normal color, warm Results & Data Results & Data ([facility]) Vital Signs (Past 12 Hours) Vital Signs Temp Pulse Pulse Resp BP BP Pulse Ox 07/30/21 14:48 107 H 20 97 07/30/21 11:45 36.7 C 111 H 18 116/67 94 07/30/21 11:09 112 H 22 07/30/21 11:00 36.8 C 115 H 24 127/78 94 07/30/21 08:08 36.7 C 105 H 18 115/73 92 07/30/21 07:12 103 H 07/30/21 04:24 36.6 C 126 H 22 131/88 93 07/30/21 03:56 128 H 28 H 07/30/21 03:30 111 H 20 124/73 96 07/30/21 03:23 115 H 17 132/77 96 07/30/21 03:20 128 H 20 96 07/30/21 03:18 129 H 15 117/63 96 07/30/21 03:17 130 H 117/63 Laboratory Results Short CBC 07/29/21 07/30/21 Range/Units 21:35 05:57 WBC 16.18 H 12.70 H (4.8-10.8) K/uL Hgb 15.9 13.7 (12.0-16.0) g/dL Hct 45.4 39.7 (37-47) % Plt Count 330 277 (130-400) K/uL BMP 07/29/21 07/30/21 21:35 05:57 Sodium 141 136 Potassium 4.0 4.1 Chloride 104 105 Carbon Dioxide 28 24 BUN 11 8 Creatinine 0.63 0.59 L Glucose 89 131 H Calcium 9.0 8.3 L Cardiac Enzymes 07/29/21 Range/Units 21:35 Troponin I < 0.03 (0-0.04) ng/ml Liver Function 07/29/21 Range/Units 21:35 Total Bilirubin 0.4 (0.2-1.0) mg/dl AST 14 (13-39) U/L ALT 18 (7-52) U/L Alkaline Phosphatase 57 (34-104) U/L Albumin 4.5 (3.4-5.0) gm/dl
[2021-07-31] MEDS: IPRATROPIUM BROMIDE NEB SOLN 0.02% 2.5 ML VIAL INH SCH ×4 (05:31→19:29)
[2021-07-31] MEDS: LEVALBUTEROL HCL 0.63 MG/3 ML NEB NEB SCH ×4 (05:31→19:29)
[2021-07-31 05:39] LABS: Hematocrit (blood only) 42.1 % (37-47); Mean Corpuscular Hemoglobin 30.4 pg (25-34); Mean Corpuscular Hgb Conc 33.3 g/dL (32-36); Mean Corpuscular Volume 91.5 fL (80-100); Mean Platelet Volume 9.2 fL (7.4-10.4); Platelet Count 289 K/uL (130-400); RDW Coefficient of Variation 12.7 % (11.5-14.5); RDW Standard Deviation 42.3 fL (36.4-46.3)
[2021-07-31 06:11] LABS: Calcium 8.7 mg/dl (8.5-10.1); Creatinine Clr Calc Pharmacy 139.5 ml/min; Est GFR (African American) 148.1 ml/min; Est GFR (Non-African American) 127.8 ml/min; Magnesium 2.1 mg/dl (1.7-2.4); Potassium 3.7 mmol/L (3.5-5.1)
[2021-07-31] MEDS: ENOXAPARIN INJ 40 MG/0.4 ML SYR SQ SCH (09:28)
[2021-07-31] MEDS: methylPREDNISolone 40 MG in SYRINGE 0 ML IV SCH ×2 (09:28→09:40)
[2021-07-31] MEDS: guaiFENesin 600 MG TABCR PO SCH ×2 (09:28→21:21)
[2021-07-31] MEDS: predniSONE 20 MG TAB PO SCH (10:48)
--- NOTE | 2021-07-31 17:07 | Hospitalist Progress Note ---
Date of Service July 31, 2021 Assessment & Plan (1) Asthma exacerbation: Plan: Acute Asthma Exacerbation --CTA:No pulmonary emboli identified although lower lobe segmental and subsegmental pulmonary arteries suboptimally assessed due to respiratory motion. Diffuse bronchial wall thickening and mild nonspecific groundglass opacities within the right middle and right lower lobes. Normal procalcitonin Continue Solu-Medrol>>Transition to Prednisone Continue nebs Weaned off of supplemental oxygen Consider pulmonary evaluation if needed Slowly Improving Lactic acidosis No obvious signs of infection Blood cultures pending Lactic acid levels normalized with IV fluids DVT Px: Lovenox SQ Code Status Full code Admission and Anticipated Discharge Date Admission Date: July 30, 2021 Subjective Patient is seen and examined at bedside Less cough and wheezing today Minimal dyspnea on exertion No other complaints Denies any chest pain, nausea, vomiting, abdominal pain Saturating well on room air Review of Systems Review of Systems: All systems reviewed & are unremarkable except as noted in Subjective Physical Exam Physical Exam: Physical Exam: Vitals signs as noted above General Appearance:Moderately built and nourished, no apparent distress Head: normocephalic, Atraumatic Eyes: normal inspection, EOMI Neck: supple, Trachea midline Respiratory/Chest: Normal breath sounds, Scattered wheezes, No accessory muscle use Cardiovascular: S1, S2, No murmur Abdomen/GI:Soft, Non tender, Bowel sounds present Extremities/Musculoskeletal:normal inspection, no edema Neurologic/Psych:AAOX3, grossly no focal neurological deficits Skin: normal color, warm Results & Data Results & Data ([facility]) Vital Signs (Past 12 Hours) Vital Signs Temp Pulse Pulse Pulse Resp BP BP 07/31/21 15:12 111 H 18 07/31/21 14:56 36.5 C 94 H 16 101/73 07/31/21 14:53 105 H 07/31/21 11:23 36.7 C 99 H 18 108/68 07/31/21 11:00 117 H 20 07/31/21 08:12 07/31/21 07:25 85 07/31/21 06:59 83 16 07/31/21 06:35 36.6 C 80 18 120/76 07/31/21 05:32 87 20 07/31/21 05:21 91 H Pulse Ox 07/31/21 15:12 94 07/31/21 14:56 91 07/31/21 14:53 07/31/21 11:23 97 07/31/21 11:00 93 07/31/21 08:12 97 07/31/21 07:25 07/31/21 06:59 98 07/31/21 06:35 96 07/31/21 05:32 95 07/31/21 05:21 Laboratory Results Short CBC 07/31/21 Range/Units 05:23 WBC 16.10 H (4.8-10.8) K/uL Hgb 14.0 (12.0-16.0) g/dL Hct 42.1 (37-47) % Plt Count 289 (130-400) K/uL BMP 07/31/21 05:23 Sodium 137 Potassium 3.7 Chloride 104 Carbon Dioxide 28 BUN 11 Creatinine 0.61 Glucose 77 Calcium 8.7
[2021-08-01] MEDS ORDERED: LEVALBUTEROL HCL 1.25 MG/3 ML NEB INH PRN (00:33)
[2021-08-01 06:35] LABS: BUN Creatinine Ratio 27.9 (10-20); Calcium 8.5 mg/dl (8.5-10.1); Creatinine Clr Calc Pharmacy 139.5 ml/min; Est GFR (African American) 148.1 ml/min; Est GFR (Non-African American) 127.8 ml/min; Magnesium 2.1 mg/dl (1.7-2.4); Potassium 3.6 mmol/L (3.5-5.1)
[2021-08-01] MEDS: LEVALBUTEROL HCL 0.63 MG/3 ML NEB NEB SCH ×2 (07:08→11:18)
[2021-08-01] MEDS: IPRATROPIUM BROMIDE NEB SOLN 0.02% 2.5 ML VIAL INH SCH ×2 (07:08→11:18)
[2021-08-01] MEDS: guaiFENesin 600 MG TABCR PO SCH (08:14)
[2021-08-01] MEDS: ENOXAPARIN INJ 40 MG/0.4 ML SYR SQ SCH (08:14)
[2021-08-01] MEDS: predniSONE 20 MG TAB PO SCH (08:15)
--- NOTE | 2021-08-01 12:15 | Hospitalist Progress Note ---
Date of Service August 01, 2021 Assessment & Plan (1) Asthma exacerbation: Plan: Acute Asthma Exacerbation --CTA:No pulmonary emboli identified although lower lobe segmental and subsegmental pulmonary arteries suboptimally assessed due to respiratory motion. Diffuse bronchial wall thickening and mild nonspecific groundglass opacities within the right middle and right lower lobes. Normal procalcitonin Continue Solu-Medrol>>Transition to Prednisone Continue nebs Weaned off of supplemental oxygen 2 Step: Did not qualify for Supplemental Oxygen Plan to discharge on Prednisone taper course Lactic acidosis No obvious signs of infection Blood cultures pending Lactic acid levels normalized with IV fluids DVT Px: Lovenox SQ Code Status Full code Admission and Anticipated Discharge Date Admission Date: July 30, 2021 Subjective Patient is seen and examined at bedside No new complaints States feeling much better cough continues to improve No wheezing today Denies any chest pain, dyspnea, nausea, vomiting, abdominal pain Saturating well on room air Review of Systems Review of Systems: All systems reviewed & are unremarkable except as noted in Subjective Physical Exam Physical Exam: Physical Exam: Vitals signs as noted above General Appearance:Moderately built and nourished, no apparent distress Head: normocephalic, Atraumatic Eyes: normal inspection, EOMI Neck: supple, Trachea midline Respiratory/Chest: Normal breath sounds, minimal wheezes, No accessory muscle use Cardiovascular: S1, S2, No murmur Abdomen/GI:Soft, Non tender, Bowel sounds present Extremities/Musculoskeletal:normal inspection, no edema Neurologic/Psych:AAOX3, grossly no focal neurological deficits Skin: normal color, warm Results & Data Results & Data ([facility]) Vital Signs (Past 12 Hours) Vital Signs Temp Pulse Pulse Pulse Pulse Pulse Resp 08/01/21 11:19 101 H 20 08/01/21 09:47 130 H 94 H 111 H 08/01/21 07:25 36.7 C 108 H 18 08/01/21 07:08 92 H 19 08/01/21 05:11 102 H 08/01/21 04:14 16 08/01/21 03:38 36.6 C 94 H 16 Resp Resp Resp BP Pulse Ox Pulse Ox Pulse Ox 08/01/21 11:19 93 08/01/21 09:47 16 16 16 91 94 08/01/21 07:25 128/77 91 08/01/21 07:08 94 08/01/21 05:11 08/01/21 04:14 94 08/01/21 03:38 122/79 94 Pulse Ox 08/01/21 11:19 08/01/21 09:47 93 08/01/21 07:25 08/01/21 07:08 08/01/21 05:11 08/01/21 04:14 08/01/21 03:38 Laboratory Results [facility] 08/01/21 05:26 Sodium 137 Potassium 3.6 Chloride 102 Carbon Dioxide 29 BUN 17 Creatinine 0.61 Glucose 79 Calcium 8.5
--- NOTE | 2021-08-01 12:23 | Discharge Summary ---
Date of Service August 01, 2021 Admission HPI Per Admitting Provider History obtained from patient and records. Medical history significant for bronchial asthma. Patient has had bronchial asthma since childhood. Usual precipitants include dust and change in weather. Infrequent rescue inhaler use. Patient recalls intubation history for bad asthma attack years ago when she was living in [place]. Last week, patient confined for 2 days at [facility] for asthma exacerbation. Patient discharged on 5-day prednisone course and rescue inhaler. No recent ER visits for asthma attacks prior to recent confinement. Patient noted persistent dry cough symptoms at home. Shortness of breath worse on exertion. Chest tightness with achy headache symptoms. Solu-Cortef and neb treatment administered by EMS. Medical History as above Surgical History : None Family History : Stroke Personal/Social history : Non-smoker, occasional EtOH intake, currently unemployed Admission Exam Per Admitting Provider Physical Exam Physical Exam: GENERAL: Comfortable, slightly anxious, no respiratory distress SKIN: Normal color, warm HEENT: [place] palpebral conjunctivae, no ptosis, dry buccal mucosa NECK : Supple, no tenderness CHEST : Decreased breath sounds, occasional expiratory wheezes, no tenderness HEART : Tachycardic, no obvious murmurs ABDOMEN: no distention, nontender EXTREMITIES : No LE swelling/tenderness, no other conspicuous deformities noted NEUROLOGIC : Coherent, no facial asymmetry, no other gross focality Principal Diagnosis Asthma Exacerbation Discharge Data Allergies Allergy/AdvReac Type Severity Reaction Status Date / Time No Known Allergies Allergy Unverified 07/29/21 22:08 Consultations 07/30/21 00:07 ED Decision to Admit Stat Ordered Studies 07/30/21 00:58 CT angio chest PE protocol Urgent CT head/brain wo con Urgent Hospital Course (1) Asthma exacerbation: Acute Asthma Exacerbation --CTA:No pulmonary emboli identified although lower lobe segmental and subsegmental pulmonary arteries suboptimally assessed due to respiratory motion. Diffuse bronchial wall thickening and mild nonspecific groundglass opacities within the right middle and right lower lobes. Normal procalcitonin Continue Solu-Medrol>>Transition to Prednisone Continue nebs Weaned off of supplemental oxygen 2 Step: Did not qualify for Supplemental Oxygen Plan to discharge on Prednisone taper course Lactic acidosis No obvious signs of infection Blood cultures pending Lactic acid levels normalized with IV fluids DVT Px: Lovenox SQ Code Status Full code Total Time Total Time Spent Total Time Spent (In Minutes): 45 minutes Discharge Plan Discharge Items Patient Disposition: Home - Self-Care Reason For Visit: ASTHMA EXACERBATION Discharge Diagnosis: Asthma Exacerbation Activity: Per Instructions section Exercise/Sports: Wait until after follow-up appointment Non-emergency contact: Primary Care Provider Call non-emergency contact if: you have any medication questions, your symptoms worsen, your pain is concerning for you and you have a fever Follow-up/Referrals: Devin Pitts MD [Hospitalist] - (Date & Time 08/07/2021 1:40 PM Provider Devin Pitts MD Department Family Medicine [address] [place] [id number] ) Diet: Regular Addtl Attending Provider Instructions: Follow up with your Primary Care Physician [facility]07[facility] Prednisone Taper Course Take Prednisone 30mg daily for 2 days, then 20mg daily for 2 days, then 10mg daily for 2 days and STOP. Seek immediate medical attention if your symptoms reoccur or worsen Please take all medications as instructed on discharge list below. Please call if you have any questions or problems. You can reach a [facility] hospitalist on duty at [facility] 24 hours a day by calling [phone] Pending Studies at Discharge: Yes Studies:: Blood Cultures Stand-Alone Forms: [facility], Smoking Cessation Medications and DC Order Prescriptions: New prednisone 10 mg tablet 10 mg PO UD Qty: 12 RF: 0 Continued albuterol sulfate 90 mcg/actuation Hfa Aerosol Inhaler 2 puff INHALATION Q6H PRN (Reason: Shortness Of Breath Or Wheezing) Qty: 1 RF: 1 Discontinued prednisone 1 dose PO UD RF: 0 Discharge Orders: Discharge Order (Routine); Ordered 08/01/21 Ordered By: Nigel Andujar Admission Data Admit Date/Time: 07/30/21 01:01 Attending Provider: Nigel Andujar Admit Provider: Virgilio Gill Primary Care Provider: PCP,NO Other Providers: Virgilio Gill
[2021-08-02] MEDS ORDERED: predniSONE 10 MG TABLET PO SCH (09:00)
== END 2021-08-01 14:21 | disposition home or self-care (01) | DRG 202 ==
LOC: EDBD → ED 21:10 → 2N 07-30 01:01